=== PATIENT | female | born 1985 ===

== ENCOUNTER → 2019-08-06 | Outpatient (CLI) | payer OTHER | LOC: LAB SHORT 13:24 → LAB 13:24 | DX: R31.9 Hematuria, unspecified (principal); R10.84 Generalized abdominal pain | CPT/HCPCS: 87086 ==

== ENCOUNTER → 2022-02-03 | Outpatient (CLI) | payer SELFPAY | END | disposition home or self-care (01) | LOC: LAB 10:30 → LAB SHORT 10:30 | DX: R30.0 Dysuria (principal) | CPT/HCPCS: 87086 ==

== ENCOUNTER → 2025-07-22 | Outpatient (CLI) | payer OTHER ==
[2025-07-22 16:40] LABS: Bacterial Vaginosis PCR Negative (NEGATIVE); Candida Group, PCR NOT DETECTED (NOT DETECT); Candida glabrata-krusei, PCR NOT DETECTED (NOT DETECT)
[2025-07-24 10:41] LABS: HEPATITIS B SURFACE ANTIBODY <3.10 IU/L
[2025-07-24 15:10] LABS: HIV 1,2 COMBO ANTIGEN/ANTIBODY Negative (Negative)
[2025-07-24 15:56] LABS: HEPATITIS C AB CIA INTERP Negative (Negative); HEPATITIS C ANTIBODY CIA INDEX 0.03 IV
[2025-07-25 14:43] LABS: HSV SUBTYPE SOURCE Serum
== END ==
LOC: LAB SHORT 13:03 → LAB 13:03
PROVIDERS: General Practice
DX: Z11.3 Encounter for screening for infections with a predominantly sexual mode of transmission (principal); Z11.4 Encounter for screening for human immunodeficiency virus [HIV]; Z11.59 Encounter for screening for other viral diseases; Z12.4 Encounter for screening for malignant neoplasm of cervix
CPT/HCPCS: 81515; 86592; 86803; 87389; 87529; 87624; G0145